=== PATIENT | female | born 1995 | race Two or more races ===

== ENCOUNTER 2024-10-14 09:08 | Observation (INO) | payer BC ==
[~2024-10-14] VITALS: Ht 165.1 cm; Wt 74.8 kg
[2024-10-14 10:08] LABS: Basophils # (auto) 0 10 ^3/uL (0-0.2); Basophils % (auto) 0.3 % (0.0-2.0); Eosinophils # (auto) 0 10 ^3/uL (0-0.8); Eosinophils % (auto) 0.4 % (0.0-7.0); Hematocrit 37.4 % (36.0-46.0); Hemoglobin 12.6 g/dL (12.2-16.2); Lymphocytes # (auto) 1.9 10 ^3/uL (0.4-5.4); Lymphocytes % (auto) 21.1 % (10.0-50.0); Mean Corpuscular Hemoglobin 29.1 pg (28.0-32.0); Mean Corpuscular Hgb Conc. 33.7 g/dL (32.0-36.0); Mean Corpuscular Volume 86.5 fL (80.0-100.0); Monocytes # (auto) 0.6 10 ^3/uL (0-1.3); Monocytes % (auto) 6.6 % (0.0-12.0); Neutrophils # (auto) 6.5 10 ^3/uL (1.6-8.6); Neutrophils % (auto) 71.6 % (37.0-80.0); Platelet Count (auto) 195 10^3/uL (140-450); Red Blood Cells 4.32 10^6/uL (4.0-5.20); Red Cell Distribution Width 13.3 % (11.8-14.3); White Blood Cell 9.1 10^3/uL (4.4-10.8)
[2024-10-14 10:16] LABS: Urine Bacteria FEW /hpf (None Seen); Urine Blood Negative /uL (Negative); Urine Clarity Turbid (Clear); Urine Color Yellow (Yellow); Urine Hyaline Cast FEW /lpf (0 - 2); Urine Mucus FEW (None Seen); Urine Protein, UAD 1+ (Negative); Urine Squamous Epithelial Cell FEW /hpf (<5); Urine Urobilinogen Normal (Negative); Urine WBC 4 /HPF (0-5); Urine pH 7.5 (5.0-9.0)
[2024-10-14 10:35] LABS: Alanine Aminotransferase 37 U/L (7-40); Albumin 3.8 g/dL (3.2-4.8); Alkaline Phosphatase 113 U/L (46-116); Anion Gap 5 (5-15); Aspartate Aminotransferase 25 U/L (13-40); Calcium 9.2 mg/dL (8.7-10.4); Carbon Dioxide 26 mmol/L (20-31); Chloride 104 mmol/L (98-107); Glucose 89 mg/dL (74-106); Potassium 4.3 mmol/L (3.5-5.1)
[2024-10-14 10:36] LABS: Bilirubin, Total 0.4 mg/dL (0.2-1.0); Blood Urea Nitrogen 7 mg/dL (9-23); Sodium 135 mmol/L (136-145); Total Protein 6.3 g/dL (5.7-8.2)
[2024-10-14] MEDS: LACTATED RINGER'S 1,000 ML IV SCH (10:52)
[2024-10-14] MEDS ORDERED: PREN-96 PO (11:03)
--- NOTE | 2024-10-14 15:21 | DVHDS2 ---
Physician Discharge Progress N Final Diagnosis: IUP 28 wk , dehydration history of syncope, anemia Operations or Procedures: Operations or Procedures IV hydration, EKG- NSR NST, appropriate for gestational age Condition on Discharge: Stable Disposition: Home Discharge Instructions: Diet: Regular Activity: No Restrictions, As Tolerated Follow Up/Referral: as indicated per Dr Alcantara Medications: N/A Follow Up Care: Discharge Statement: "Patient was advised to return to the ER or call 911 if any headaches, dizziness, shortness of breath, chest pain, abdominal pain, bleeding, fevers, or worsening of medical condition. Patient was counseled about treatment plan, medications, possible side effects, patientverbalized understanding. All questions were answered to the best of my ability. This discharge took greater then 30 minutes in planning, reviewing documentation, counseling the patient, and discussing with other team members." Visit Coding OBGYN Date of Service: Oct 14, 2024 Billing Provider: GAVINO STOREY DO COMPENSATION EXPERT Common Visit Codes: 33809-OFW/OBS SAME DATE (HIGH) COMPENSATION EXPERT Procedure Codes: 79288-57- NON-STRESS TEST GAVINO STOREY DO Oct 14, 2024 15:21
--- NOTE | 2024-10-15 11:42 | ECG ---
[facility] Test Date: 2024-10-14 Test Time: 09:41:10 Pat Name: CALLI HORNER Department: Room: TRIAGE1 A Gender: F Rn Transition: ZUHAIR : 1995 Requested By: GAVINO STOREY Order Number: [id number] Reading MD: Tyler Arteaga Measurements Intervals [place] Rate: 87 P: 13 MO: 128 QRS: -3 QRSD: 64 T: 15 QT: 344 QTc: 413 Interpretive Statements Normal sinus rhythm Cannot rule out Anterior infarct , age undetermined Electronically Signed On 10-15-2024 15:59:47 PST by Tyler Arteaga Please click the below link to view image of tracing.
== END 2024-10-14 12:17 | disposition home or self-care (01) ==
LOC: LDRP 09:08 → UNDOADMOB 09:08 → LDRP 09:32 → UNDODISOB 12:17
PROVIDERS: ADMIT Obstetrics & Gynecology; ATTEND Obstetrics & Gynecology
DX: O99.283 Endocrine, nutritional and metabolic diseases complicating pregnancy, third trimester (principal); E86.0 Dehydration; O99.013 Anemia complicating pregnancy, third trimester; D64.9 Anemia, unspecified; R55 Syncope and collapse; Z3A.28 28 weeks gestation of pregnancy; Z79.899 Other long term (current) drug therapy; Z98.890 Other specified postprocedural states
CPT/HCPCS: 36415; 59025; 80053; 81001; 81002; 85025; 93005; 94760; 96360; 96361; G0378

== ENCOUNTER 2024-11-30 22:24 | Emergency (ER) | payer BC ==
[~2024-11-30] VITALS: Ht 165.1 cm; Wt 80.0 kg
[~2024-11-30 22:24] MED LIST: PREN-96 PO
--- NOTE | 2024-11-30 23:02 | ED.PDOC ---
Musculoskeletal HPI Comments HPI: Poor Historian. 29-year-old female thirty-five weeks gestation presents to emergency department per her PCP's instruction. Patient has been having two day history of right ankle pitting edema. Denies any associated symptoms of chest pain shortness of breath or dizziness or calf pain. Past Medical History: Denies any Past Surgical History: Denies any REVIEW OF SYSTEMS: CONSTITUTIONAL: Denies acute: fever, diaphoresis, chills, generalized weakness. HEAD: Denies acute: headache, photophobia Eyes: Denies acute: Double vision, vision loss, eye pain, eye discharge. EARS: Denies acute: tinnitus, hearing loss, ear discharge, ear pain, THROAT: Denies acute: sore throat, swelling, difficulty swallowing , pain with swallowing, change in voice. NECK: Denies acute: neck pain, neck swelling, stiff neck. HEART: Denies acute : chest pain, palpitations, LUNGS: Denies acute: SOB, wheezing, cough, hemoptysis ABDOMEN: Denies acute: abdominal pain, Nausea, Vomiting, diarrhea, melena , hematemesis, hematochezia SKIN: Denies acute: rash, redness, lesions, itchiness. EXTREMITIES: Denies acute: calf pain, numbness, tingling, weakness, denies pain in extremity. Denies acute: Low back pain. Neuro: Denies acute: focal neurological deficit, motor or sensory focal neurological deficit, tremors, seizure like activity, confusion, dizziness, change in mental status, loss of bowel or bladder function, cauda equina like symptoms. : Denies acute: dysuria, hematuria, flank pain, increase in urinary frequency. PSYCH: Denies acute: hallucination, suicidal ideation, homicidal ideation. FEMALE: Denies acute: abnormal vaginal bleeding, foul odor, unusual discharge. PHYSICAL EXAM: General: ---no-----acute distress, awake and alert. Head: normocephalic, atraumatic. Neck: supple, trachea is midline, no swelling. Throat: Normal phonation. Eyes:, no erythema, no purulent discharge, no proptosis, no icterus. Heart: regular rate, regular rhythm, no significant murmur appreciated. Lungs: no apparent respiratory distress, Able to speak in full sentences. No wheezing, no rhonchi, no crackles. No stridors Clear to auscultation bilaterally. Abdomen: non tender to palpation, non distended, soft, no guarding, no rebound, + bowel sounds. Neuro: Awake, Alert, oriented to name, self, situation, follows commands GCS=15. Speech is normal. Skin: no petechia, no purpura, no cyanosis, non-pale, not jaundice. Lower extremities: --no - Pitting edema Evaluation of the area of complaint. Right ankle pitting edema 2/4. Pedal pulses palpable. Patient is neurovascularly intact in the affected extremity. No tenderness to palpation. No calf tenderness to palpation. Makes eye contact. moves all four extremities. Face: no apparent facial droop. Ambulating in the ED independently. Ears: Normal appearing TM b/l, ED COURSE: Chief Complaint: Lower Extremity Time Seen by MD: 22:28 Reviewed Notes: Nurses Notes, Allergies Allergies: Coded Allergies: NO KNOWN ALLERGIES (Unverified , 10/14/24) Home Meds Active Scripts Cephalexin Monohydrate (Cephalexin) 500 Mg Tab, 1 TAB PO TID for 5 Days, #15 TAB Prov:TABITHA CANELA DO 12/01/24 Reported Medications Vit W/ Ferrous Fumara ( One Daily) Daily Tab, 1 TAB PO DAILY, #90 TAB 3 Refills 10/14/24 Information Source: Patient Location: Right Was a procedure done? Was a procedure done?: No Differential Diagnosis EXT Differential Diagnosis: Deep Vein Thrombosis, Contusion, Neurovascular injury, Bursitis, Other (Leg swellingDdx include but not limited to DVT, ischemic limb, pitting edema, volume overload, CHF, cellulitis, hematoma, compartment syndrome, dependent edema, venous stasis.) X-Ray, Labs, Meds, VS Vital Signs Date Time Temp Pulse Resp B/P (MAP) Pulse Ox O2 Delivery O2 Flow Rate FiO2 12/01/24 02:00 66 16 96 Room Air* 0 21 12/01/24 01:59 98.4 72 18 119/62 (81) 97 98.4 11/30/24 22:55 98.2 84 18 134/59 (84) 97 98.2 Lab Test 12/01/24 02:05 11/30/24 22:59 Range/Units Urine Color Light-yellow Yellow Urine Clarity Turbid H Clear Urine pH 6.0 5.0-9.0 Urine Specific [place] 1.017 1.001-1.035 Urine Protein Negative Negative Urine Ketones Negative Negative Urine Blood Negative Negative /uL Urine Nitrite Negative Negative Urine Bilirubin Negative Negative Urine Urobilinogen Normal Negative mg/dL Urine Leukocyte Esterase 3+ Negative /uL Urine RBC 9 0 - 4 /hpf Urine Microscopic WBC 27 H 0-5 /HPF Urine Squamous Epithelial Cells Mod <5 /hpf Urine Bacteria Few H None Seen /hpf Urine Glucose Normal Normal mg/dL White Blood Count 8.6 4.4-10.8 10^3/uL Red Blood Count 4.21 4.0-5.20 10^6/uL Hemoglobin 11.7 L 12.2-16.2 g/dL Hematocrit 35.3 L 36.0-46.0 % Mean Corpuscular Volume 84.0 80.0-100.0 fL Mean Corpuscular Hemoglobin 27.9 L 28.0-32.0 pg Mean Corpuscular Hemoglobin Concent 33.2 32.0-36.0 g/dL Red Cell Distribution Width 12.6 11.8-14.3 % Platelet Count 199 140-450 10^3/uL Mean Platelet Volume 10.4 6.9-10.8 fL Neutrophils (%) (Auto) 59.6 37.0-80.0 % Lymphocytes (%) (Auto) 30.4 10.0-50.0 % Monocytes (%) (Auto) 8.6 0.0-12.0 % Eosinophils (%) (Auto) 0.7 0.0-7.0 % Basophils (%) (Auto) 0.7 0.0-2.0 % Neutrophils # (Auto) 5.1 1.6-8.6 10 ^3/uL Lymphocytes # (Auto) 2.6 0.4-5.4 10 ^3/uL Monocytes # (Auto) 0.7 0-1.3 10 ^3/uL Eosinophils # (Auto) 0.1 0-0.8 10 ^3/uL Basophils # (Auto) 0.1 0-0.2 10 ^3/uL Nucleated Red Blood Cells 0.1 % Sodium Level 137 136-145 mmol/L Potassium Level 3.8 3.5-5.1 mmol/L Chloride Level 106 98-107 mmol/L Carbon Dioxide Level 22 20-31 mmol/L Anion Gap 9 5-15 Blood Urea Nitrogen 9 9-23 mg/dL Creatinine 0.64 0.550-1.02 mg/dL Glomerular Filtration Rate Calc 124 >90 mL/min BUN/Creatinine Ratio 14.1 10.0-20.0 Serum Glucose 89 74-106 mg/dL Calcium Level 9.5 8.7-10.4 mg/dL Total Bilirubin 0.4 0.2-1.0 mg/dL Aspartate Amino Transferase (AST) 25 13-40 U/L Alanine Aminotransferase (ALT) 23 7-40 U/L Alkaline Phosphatase 182 H 46-116 U/L B-Type Natriuretic Peptide 50.35 0-100 pg/mL Total Protein 6.6 5.7-8.2 g/dL Albumin 3.8 3.2-4.8 g/dL Time of 1ST Reevaluation: 00:00 Reevaluation 1ST: Unchanged Patient Education/Counseling: Diagnosis, Treatment Family Education/Counseling: Other Comments Patient presented with the above HPI.----ankle swelling--workup was initiated. patient was found with the above mentioned diagnosis. the following medications were ordered: please refer to order lists of meds and tests obtained by myself Dr. Canela. Patient ED course and VS have been stabilized. Patient has been reassessed in the ED and remained in a stable condition. Pertinent incidental findings were discussed with the patient and/or family. Patient/family voices understanding and is agreeable with plan. Patient has been observed in the ED adequate length of time to insure improvement/stability. Escalation of care considered: Consideration of escalation to observation or admission Patient was DISCHARGED home in a stable condition. All the reports of any imaging studies that were ordered by myself were reviewed by myself. Departure 1 Departure Time of Disposition: 00:09 Impression: Primary Impression: Pitting edema Additional Impression: UTI in Disposition: 01 HOME / SELF CARE / HOMELESS Condition: Stable Additional Instructions: Additional instructions: You MUST follow-up with your primary care/family doctor in 1 to 2 days. If you are unable to see your primary care/family doctor, please return to our emergency room for re-assessment and re-evaluation in 1 to 2 days. Return to the emergency room here in our facility or to the nearest ER [facility] if your symptoms change or worsen. CONSULTATIONS: you MUST Follow-up for consultation as soon as possible with: Dr. MILDRED Mckenzie doctor in 1-2 days. Please call for appointment. You MUST call the consultants office yourself to make an appointment. You may need to arrange that through your insurance and/or your primary/family doctor. If you are unable to see the programmer analyst consultant in 1 to 2 days, you must return to our emergency room (or any other ER of your choice) for re-assessment and re- evaluation. Adequate fluid hydration. Leg elevation. Wear compression stockings. Salt restrictions. Repeat leg ultrasound in 4-5 days or sooner if symptoms change or worsen. Below is a copy of your radiological report for follow up: [place] [address] Ph: [phone] DIAGNOSTIC IMAGING Diagnostic Imaging Report : [id number] Signed PATIENT: CALLI HORNER ACCT: [id number] UNIT: [id number] : 1995 LOC: ER ROOM / BED: / AGE / SEX: 29 / F ADM STATUS: REG ER SERVICE 8102 ORDERING PHYSICIAN: TABITHA CANELA DO PROCEDURE(s): RLDVT - RT Lower DVT REASON: ankle swelling ORDER NUMBER(s): [id number], ACCESSION NUMBER(s): [id number] Right lower extremity venous duplex Clinical History: ankle swelling Comparison: None Technique: Duplex Doppler evaluation of the deep venous system of the right lower extremity from the common femoral vein to the popliteal vein including color Doppler and spectral/pulsed waveform analysis was performed. Findings: The common femoral vein demonstrates appropriate compressibility and waveform variability. There is compressibility/patency of the great saphenous vein at the proximal thigh. The femoral vein demonstrates appropriate compressibility and waveform variability. The deep femoral vein demonstrates appropriate compressibility and waveform variability. The popliteal vein demonstrates appropriate compressibility and waveform variability. There is normal compressibility at the tibioperoneal trunk. Impression: 1. No right femoropopliteal venous thrombosis. ATED BY: JUS ALEGRE MD DICTATED DATE/TIME: 11/30/24 0656 SIGNED BY: JUS ALEGRE MD SIGNED DATE/TIME: 11/30/24 9596 CC: e-Prescriptions Cephalexin Monohydrate (Cephalexin) 500 Mg Tab 1 TAB PO TID for 5 Days, #15 TAB Prov: TABITHA CANELA DO 12/01/24 Discharged With: Self Critical Care Note Critical Care Time?: No TABITHA CANELA DO Nov 30, 2024 23:02
[2024-11-30 23:13] LABS: Basophils # (auto) 0.1 10 ^3/uL (0-0.2); Basophils % (auto) 0.7 % (0.0-2.0); Eosinophils # (auto) 0.1 10 ^3/uL (0-0.8); Eosinophils % (auto) 0.7 % (0.0-7.0); Hematocrit 35.3 % (36.0-46.0); Hemoglobin 11.7 g/dL (12.2-16.2); Lymphocytes # (auto) 2.6 10 ^3/uL (0.4-5.4); Lymphocytes % (auto) 30.4 % (10.0-50.0); Mean Corpuscular Hemoglobin 27.9 pg (28.0-32.0); Mean Corpuscular Hgb Conc. 33.2 g/dL (32.0-36.0); Monocytes # (auto) 0.7 10 ^3/uL (0-1.3); Monocytes % (auto) 8.6 % (0.0-12.0); Neutrophils # (auto) 5.1 10 ^3/uL (1.6-8.6); Neutrophils % (auto) 59.6 % (37.0-80.0); Nucleated Red Blood Cells % 0.1 %; Platelet Count (auto) 199 10^3/uL (140-450); Red Blood Cells 4.21 10^6/uL (4.0-5.20); Red Cell Distribution Width 12.6 % (11.8-14.3); White Blood Cell 8.6 10^3/uL (4.4-10.8)
[2024-11-30 23:32] LABS: Alanine Aminotransferase 23 U/L (7-40); Albumin 3.8 g/dL (3.2-4.8); Anion Gap 9 (5-15); Aspartate Aminotransferase 25 U/L (13-40); BUN/Creatinine Ratio 14.1 (10.0-20.0); Bilirubin, Total 0.4 mg/dL (0.2-1.0); Blood Urea Nitrogen 9 mg/dL (9-23); Calcium 9.5 mg/dL (8.7-10.4); Carbon Dioxide 22 mmol/L (20-31); Chloride 106 mmol/L (98-107); Glucose 89 mg/dL (74-106); Potassium 3.8 mmol/L (3.5-5.1); Sodium 137 mmol/L (136-145); Total Protein 6.6 g/dL (5.7-8.2)
[2024-11-30 23:43] LABS: Alkaline Phosphatase 182 U/L (46-116)
--- NOTE | 2024-11-30 23:48 | DVH ---
Right lower extremity venous duplex Clinical History: ankle swelling Comparison: None Technique: Duplex Doppler evaluation of the deep venous system of the right lower extremity from the common femo ral vein to the popliteal vein including color Doppler and spectral/pulsed waveform analysis was perf ormed. Findings: The common femoral vein demonstrates appropriate compressibility and waveform variability. There is compressibility/patency of the great saphenous vein at the proximal thigh. The femoral vein demonstrates appropriate compressibility and waveform variability. The deep femoral vein demonstrates appropriate compressibility and waveform variability. The popliteal vein demonstrates appropriate compressibility and waveform variability. There is normal compressibility at the tibioperoneal trunk. Impression: 1. No right femoropopliteal venous thrombosis.
[2024-12-01 01:59] VITALS: BP 119/62; TEMP 98.4
[2024-12-01 02:00] VITALS: PULSE 66; RESP 16; O2SAT 96
[2024-12-01] MEDS ORDERED: CEPH500T PO (02:39)
[2024-12-01 02:44] LABS: Urine Bacteria FEW /hpf (None Seen); Urine Blood Negative /uL (Negative); Urine Clarity Turbid (Clear); Urine Color Light-Yellow (Yellow); Urine Protein, UAD Negative (Negative); Urine Specific Gravity 1.017 (1.001-1.035); Urine Squamous Epithelial Cell MOD /hpf (<5); Urine Urobilinogen Normal (Negative); Urine WBC 27 /HPF (0-5)
== END 2024-12-01 02:10 | disposition home or self-care (01) ==
LOC: ER 22:24
DX: O23.43 Unspecified infection of urinary tract in pregnancy, third trimester (principal); N39.0 Urinary tract infection, site not specified; O26.893 Other specified pregnancy related conditions, third trimester; R60.9 Edema, unspecified; Z3A.35 35 weeks gestation of pregnancy; Z79.899 Other long term (current) drug therapy
CPT/HCPCS: 36415; 80053; 81001; 83880; 85025; 93971

== ENCOUNTER 2024-12-06 08:55 | Observation (INO) | payer BC ==
[~2024-12-06 08:55] MED LIST changes: +CEPH500T PO
--- NOTE | 2024-12-06 09:55 | DVH ---
Procedure: US BIOPHYSICAL PROFILE 12/06/2024 09:31 AM Indication: PIH Comparison: None Technique: Sonogram of gravid uterus utilizing grayscale and color techniques. FINDINGS: Single living intrauterine gestation. Presentation: Cephalic Placenta: Anterior heart rate: 140 bpm BOBO: 14 cm, DVP: 6.4 cm Maternal cervix: Not visualized Biophysical Profile: breathing score: 2 movement score: 2 tone: 2 Quantitative BOBO score: 2 Total score: 8/8 IMPRESSION: 1. Single living as above. 2. Biophysical profile score: 8/8.
[2024-12-06 10:11] LABS: Basophils # (auto) 0 10 ^3/uL (0-0.2); Basophils % (auto) 0.6 % (0.0-2.0); Eosinophils # (auto) 0.1 10 ^3/uL (0-0.8); Eosinophils % (auto) 0.8 % (0.0-7.0); Hematocrit 32.7 % (36.0-46.0); Hemoglobin 11.1 g/dL (12.2-16.2); Lymphocytes # (auto) 2.2 10 ^3/uL (0.4-5.4); Lymphocytes % (auto) 30.3 % (10.0-50.0); Mean Corpuscular Hemoglobin 28.2 pg (28.0-32.0); Mean Corpuscular Volume 82.9 fL (80.0-100.0); Monocytes # (auto) 0.6 10 ^3/uL (0-1.3); Monocytes % (auto) 8.8 % (0.0-12.0); Neutrophils # (auto) 4.3 10 ^3/uL (1.6-8.6); Neutrophils % (auto) 59.5 % (37.0-80.0); Nucleated Red Blood Cells % 0.1 %; Platelet Count (auto) 194 10^3/uL (140-450); Red Blood Cells 3.94 10^6/uL (4.0-5.20); White Blood Cell 7.3 10^3/uL (4.4-10.8)
[2024-12-06 10:12] LABS: Urine Bacteria FEW /hpf (None Seen); Urine Blood Negative /uL (Negative); Urine Clarity Turbid (Clear); Urine Color Light-Yellow (Yellow); Urine Protein, UAD Negative (Negative); Urine Specific Gravity 1.014 (1.001-1.035); Urine Squamous Epithelial Cell MOD /hpf (<5); Urine Urobilinogen Normal (Negative); Urine WBC 5 /HPF (0-5); Urine pH 5.5 (5.0-9.0)
[2024-12-06 10:22] LABS: INR 0.91 (0.9-1.15); Partial Thromboplastin Time 24.6 SEC (24.5-34.5); Prothrombin Time 9.7 sec (9.3-11.8)
[2024-12-06 10:23] LABS: Protein, Urine 14.7 mg/dL (1-14)
[2024-12-06 10:25] LABS: Creatinine, Urine 70.63 mg/dL (30.0-125.0); Urine Protein/Creatinine Ratio 0.21
[2024-12-06 10:25] LABS: Alanine Aminotransferase 30 U/L (7-40); Albumin 3.4 g/dL (3.2-4.8); Anion Gap 9 (5-15); Aspartate Aminotransferase 30 U/L (13-40); BUN/Creatinine Ratio 16.9 (10.0-20.0); Bilirubin, Total 0.3 mg/dL (0.2-1.0); Blood Urea Nitrogen 10 mg/dL (9-23); Calcium 9.2 mg/dL (8.7-10.4); Carbon Dioxide 22 mmol/L (20-31); Glucose 78 mg/dL (74-106); Potassium 3.9 mmol/L (3.5-5.1); Sodium 139 mmol/L (136-145)
[2024-12-06 10:26] LABS: Alkaline Phosphatase 183 U/L (46-116); Chloride 108 mmol/L (98-107); Total Protein 5.7 g/dL (5.7-8.2)
--- NOTE | 2024-12-06 13:02 | DVHDS2 ---
Physician Discharge Progress N Final Diagnosis: PreE labs Operations or Procedures: Operations or Procedures 29yo IUP@36.1wks, +FM, denies UCs/LOF/VB/VIEYRA/vision changes/RUQ pain. VSS NST reactive FKC/PTL precautions reviewed Dr. Alcantara consulted, agrees with POC. Laboratory Tests Test 12/06/24 09:20 12/06/24 09:43 Range/Units Urine Color Light-yellow Yellow Urine Clarity Turbid H Clear Urine pH 5.5 5.0-9.0 Urine Specific [place] 1.014 1.001-1.035 Urine Protein Negative Negative Urine Ketones Negative Negative Urine Blood Negative Negative /uL Urine Nitrite Negative Negative Urine Bilirubin Negative Negative Urine Urobilinogen Normal Negative mg/dL Urine Leukocyte Esterase 3+ Negative /uL Urine RBC 5 0 - 4 /hpf Urine Microscopic WBC 5 0-5 /HPF Urine Squamous Epithelial Cells Mod <5 /hpf Urine Bacteria Few H None Seen /hpf Urine Creatinine 70.63 30.0-125.0 mg/dL Urine Protein/Creatinine Ratio 0.21 Urine Glucose Normal Normal mg/dL Urine Total Protein 14.7 H 1-14 mg/dL White Blood Count 7.3 4.4-10.8 10^3/uL Red Blood Count 3.94 L 4.0-5.20 10^6/uL Hemoglobin 11.1 L 12.2-16.2 g/dL Hematocrit 32.7 L 36.0-46.0 % Mean Corpuscular Volume 82.9 80.0-100.0 fL Mean Corpuscular Hemoglobin 28.2 28.0-32.0 pg Mean Corpuscular Hemoglobin Concent 34.0 32.0-36.0 g/dL Red Cell Distribution Width 13.0 11.8-14.3 % Platelet Count 194 140-450 10^3/uL Mean Platelet Volume 10.7 6.9-10.8 fL Neutrophils (%) (Auto) 59.5 37.0-80.0 % Lymphocytes (%) (Auto) 30.3 10.0-50.0 % Monocytes (%) (Auto) 8.8 0.0-12.0 % Eosinophils (%) (Auto) 0.8 0.0-7.0 % Basophils (%) (Auto) 0.6 0.0-2.0 % Neutrophils # (Auto) 4.3 1.6-8.6 10 ^3/uL Lymphocytes # (Auto) 2.2 0.4-5.4 10 ^3/uL Monocytes # (Auto) 0.6 0-1.3 10 ^3/uL Eosinophils # (Auto) 0.1 0-0.8 10 ^3/uL Basophils # (Auto) 0 0-0.2 10 ^3/uL Nucleated Red Blood Cells 0.1 % Prothrombin Time 9.7 9.3-11.8 sec Prothrombin Time INR 0.91 0.9-1.15 Activated Partial Thromboplast Time 24.6 24.5-34.5 SEC Sodium Level 139 136-145 mmol/L Potassium Level 3.9 3.5-5.1 mmol/L Chloride Level 108 H 98-107 mmol/L Carbon Dioxide Level 22 20-31 mmol/L Anion Gap 9 5-15 Blood Urea Nitrogen 10 9-23 mg/dL Creatinine 0.59 0.550-1.02 mg/dL Glomerular Filtration Rate Calc 127 >90 mL/min BUN/Creatinine Ratio 16.9 10.0-20.0 Serum Glucose 78 74-106 mg/dL Uric Acid 3.0 L 3.1-7.8 mg/dL Calcium Level 9.2 8.7-10.4 mg/dL Total Bilirubin 0.3 0.2-1.0 mg/dL Aspartate Amino Transferase (AST) 30 13-40 U/L Alanine Aminotransferase (ALT) 30 7-40 U/L Alkaline Phosphatase 183 H 46-116 U/L Total Protein 5.7 5.7-8.2 g/dL Albumin 3.4 3.2-4.8 g/dL Other Interventions Other Interventions [place] [address] Ph: [phone] DIAGNOSTIC IMAGING Diagnostic Imaging Report : [id number] Signed PATIENT: CALLI HORNER ACCT: [id number] UNIT: [id number] : 1995 LOC: [facility] ROOM / BED: [facility] / A AGE / SEX: 29 / F ADM STATUS: ADM IN SERVICE 0916 ORDERING PHYSICIAN: TA GARCIA CNM PROCEDURE(s): BPP - BIOPHYSICAL PROFILE REASON: [facility] ORDER NUMBER(s): [id number], ACCESSION NUMBER(s): [id number] Procedure: US BIOPHYSICAL PROFILE 12/06/2024 09:31 AM Indication: PIH Comparison: None Technique: Sonogram of gravid uterus utilizing grayscale and color techniques. FINDINGS: Single living intrauterine gestation. Presentation: Cephalic Placenta: Anterior heart rate: 140 bpm BOBO: 14 cm, DVP: 6.4 cm Maternal cervix: Not visualized Biophysical Profile: breathing score: 2 movement score: 2 tone: 2 Quantitative BOBO score: 2 Total score: 8/8 IMPRESSION: 1. Single living as above. 2. Biophysical profile score: 8/8. ATED BY: ESTELA DREW MD DICTATED DATE/TIME: 12/06/24951 SIGNED BY: ESTELA DREW MD SIGNED DATE/TIME: 12/06/24951 CC: Condition on Discharge: Stable Disposition: Home Discharge Instructions: Diet: Regular Activity: No Restrictions, As Tolerated Medications: see med list Follow Up Care: Specialist: f/u in [address] Alcantara Discharge Statement: "Patient was advised to return to the ER or call 911 if any headaches, dizziness, shortness of breath, chest pain, abdominal pain, bleeding, fevers, or worsening of medical condition. Patient was counseled about treatment plan, medications, possible side effects, patientverbalized understanding. All questions were answered to the best of my ability. This discharge took greater then 30 minutes in planning, reviewing documentation, counseling the patient, and discussing with other team members." Visit Coding OBGYN Date of Service: Dec 06, 2024 Billing Provider: TA GARCIA CNM GROUND DEFENCE OFFICER Common Visit Codes: 86337-APADMDS OBS CARE (HIGH) GROUND DEFENCE OFFICER Procedure Codes: 22107-70- NON-STRESS TEST TA GARCIA CNM Dec 06, 2024 13:02
== END 2024-12-06 11:11 | disposition home or self-care (01) ==
LOC: LDRP 08:55 → UNDOADMOB 08:55 → LDRP 09:19 → UNDODISOB 11:11
PROVIDERS: ADMIT Obstetrics & Gynecology; ATTEND Obstetrics & Gynecology
DX: O13.3 Gestational [pregnancy-induced] hypertension without significant proteinuria, third trimester (principal); Z98.890 Other specified postprocedural states; Z79.899 Other long term (current) drug therapy; Z3A.36 36 weeks gestation of pregnancy
CPT/HCPCS: 36415; 76818; 80053; 81001; 82570; 84156; 84550; 85025; 85610; 85730; 94760; G0378; 76819

== ENCOUNTER 2024-12-09 20:32 | Observation (INO) | payer BC ==
[~2024-12-09] VITALS: Ht 165.1 cm; Wt 79.8 kg
--- NOTE | 2024-12-09 21:56 | DVHDS2 ---
Physician Discharge Progress N Final Diagnosis: Gestational HTN Secondary Diagnosis: surveillance Operations or Procedures: Operations or Procedures NST Commentary: Commentary Hand swelling/ edema Condition on Discharge: Stable Disposition: Home Discharge Instructions: Diet: Regular, Cardiac 2g Na,low cholest Activity: No Restrictions, As Tolerated Follow Up/Referral: as scheduled Medications: NA Follow Up Care: Discharge Statement: "Patient was advised to return to the ER or call 911 if any headaches, dizziness, shortness of breath, chest pain, abdominal pain, bleeding, fevers, or worsening of medical condition. Patient was counseled about treatment plan, medications, possible side effects, patientverbalized understanding. All questions were answered to the best of my ability. This discharge took greater then 30 minutes in planning, reviewing documentation, counseling the patient, and discussing with other team members." Visit Coding OBGYN Date of Service: Dec 09, 2024 Billing Provider: GAVINO STOREY DO CONSTRUCTION FRAMER Common Visit Codes: 94272-TZG/OBS SAME DATE (MOD) GAVINO STOREY DO Dec 09, 2024 21:56
== END 2024-12-09 22:11 | disposition home or self-care (01) ==
LOC: LDRP 20:32
PROVIDERS: ADMIT Pediatrics; ATTEND Pediatrics
DX: O13.3 Gestational [pregnancy-induced] hypertension without significant proteinuria, third trimester (principal); O26.893 Other specified pregnancy related conditions, third trimester; R20.2 Paresthesia of skin; Z3A.36 36 weeks gestation of pregnancy; Z79.899 Other long term (current) drug therapy; Z98.890 Other specified postprocedural states
CPT/HCPCS: 81002; 94760; G0378

== ENCOUNTER 2024-12-14 06:22 | Observation (INO) | payer BC ==
--- NOTE | 2024-12-14 10:42 | DVH ---
BIOPHYSICAL PROFILE HISTORY: PIH TECHNIQUE: Multiple transabdominal real-time grayscale sonographic images through the gravid uterus of the fetus with duplex Doppler color flow and M-mode spectral analysis FINDINGS: BIOPHYSICAL PROFILE: breathing score: 2 movement score: 2 tone score: 2 Quantitative BOBO score: 2 (BOBO: 12.9 Cm.) Total score: 8 The cervix not well visualized Single live fetus in cephalic presentation. heart rate 122 beats per minute. Grade 2 anterior placenta without previa or abruption IMPRESSION: Biophysical profile score: 8
--- NOTE | 2024-12-14 15:39 | DVHDS2 ---
Physician Discharge Progress N Final Diagnosis: [facility] 37wks Operations or Procedures: Operations or Procedures nst,roman nst reviewed reactive Condition on Discharge: Good Disposition: Home Discharge Instructions: Diet: Regular Activity: Light activity Medications: na Follow Up Care: Specialist: 1w Discharge Statement: "Patient was advised to return to the ER or call 911 if any headaches, dizziness, shortness of breath, chest pain, abdominal pain, bleeding, fevers, or worsening of medical condition. Patient was counseled about treatment plan, medications, possible side effects, patientverbalized understanding. All questions were answered to the best of my ability. This discharge took greater then 30 minutes in planning, reviewing documentation, counseling the patient, and discussing with other team members." Visit Coding OBGYN Date of Service: Dec 14, 2024 Billing Provider: DIVYA BOWEN DO CUSTOMER SUPPLY COORDINATOR Common Visit Codes: 27379-RFVDSBI OBS CARE (HIGH) CUSTOMER SUPPLY COORDINATOR Procedure Codes: 80424-24- NON-STRESS TEST DIVYA BOWEN DO Dec 14, 2024 15:39
== END 2024-12-14 11:11 | disposition home or self-care (01) ==
LOC: LDRP 09:35 → UNDOADMOB 09:35 → LDRP 09:44 → UNDODISOB 11:11
PROVIDERS: ADMIT Obstetrics & Gynecology; ATTEND Obstetrics & Gynecology
DX: O13.3 Gestational [pregnancy-induced] hypertension without significant proteinuria, third trimester (principal); Z98.890 Other specified postprocedural states; Z79.899 Other long term (current) drug therapy; Z3A.37 37 weeks gestation of pregnancy
CPT/HCPCS: 76819; 81002; 94760; G0378; 76818

== ENCOUNTER 2024-12-21 06:23 | Observation (INO) | payer BC ==
--- NOTE | 2024-12-21 11:28 | DVH ---
BIOPHYSICAL PROFILE HISTORY: PIH Comparison Study: US BIOPHYSICAL PROFILE on DOS: 12/14/24, US BIOPHYSICAL PROFILE on DOS: 12/06/24 TECHNIQUE: Multiple real-time grayscale sonographic images through the gravid uterus of the fetus wi th duplex Doppler color flow and M-mode spectral analysis FINDINGS: BIOPHYSICAL PROFILE: breathing score: 2 movement score: 2 tone score: 2 Quantitative BOBO score: 2 (BOBO: 11.7 Cm.) Total score: 8 The cervix is not visualized Single live fetus in cephalic presentation. heart rate 124 beats per minute. Grade 3, anterior placenta without previa or abruption IMPRESSION: Biophysical profile score: 8
--- NOTE | 2024-12-21 14:56 | DVHDS2 ---
Physician Discharge Progress N Final Diagnosis: PIH 38wks Operations or Procedures: Operations or Procedures nst reviewd reactive Condition on Discharge: Good Disposition: Home Discharge Instructions: Diet: Cardiac 2g Na,low cholest Activity: No Restrictions, As Tolerated Follow Up/Referral: weekly Medications: na Follow Up Care: Specialist: 1w Discharge Statement: "Patient was advised to return to the ER or call 911 if any headaches, dizziness, shortness of breath, chest pain, abdominal pain, bleeding, fevers, or worsening of medical condition. Patient was counseled about treatment plan, medications, possible side effects, patientverbalized understanding. All questions were answered to the best of my ability. This discharge took greater then 30 minutes in planning, reviewing documentation, counseling the patient, and discussing with other team members." Visit Coding OBGYN Date of Service: December 21, 2024 Billing Provider: DIVYA BOWEN DO PENCIL INSPECTOR Common Visit Codes: 67282-BQYFLMD OBS CARE (HIGH) PENCIL INSPECTOR Procedure Codes: 44973-24- NON-STRESS TEST DIVYA BOWEN DO December 21, 2024 14:56
== END 2024-12-21 12:42 | disposition home or self-care (01) ==
LOC: UNDOADMOB 10:00 → LDRP 10:00 → UNDODISOB 12:42
PROVIDERS: ADMIT Obstetrics & Gynecology; ATTEND Obstetrics & Gynecology
DX: O13.3 Gestational [pregnancy-induced] hypertension without significant proteinuria, third trimester (principal); Z3A.38 38 weeks gestation of pregnancy
CPT/HCPCS: 76818; 81002; 94760; G0378; 59025; 76819

== ENCOUNTER 2024-12-27 07:57 | Observation (INO) | payer BC ==
--- NOTE | 2024-12-27 09:29 | DVH ---
BIOPHYSICAL PROFILE HISTORY: PIH TECHNIQUE: Multiple transabdominal real-time grayscale sonographic images through the gravid uterus of the fetus with duplex Doppler color flow and M-mode spectral analysis FINDINGS: BIOPHYSICAL PROFILE: breathing score: 2 movement score: 2 tone score: 2 Quantitative BOBO score: 2 (BOBO: 9.9 Cm.) Total score: 8 The cervix not well visualized Single live fetus in cephalic. presentation. heart rate 147 beats per minute. Grade 3 anterior placenta without previa or abruption IMPRESSION: Biophysical profile score: 8
[2024-12-27 09:56] LABS: Vaginal Trichomonas Not Present
[2024-12-27 09:57] LABS: Vaginal Bacteria Many; Vaginal Clue Cells Few; Vaginal Epithelial Cells Many
[2024-12-27 10:18] LABS: Urine Bacteria FEW /hpf (None Seen); Urine Blood Negative /uL (Negative); Urine Clarity Turbid (Clear); Urine Color Light-Yellow (Yellow); Urine Mucus FEW (None Seen); Urine Protein, UAD 1+ (Negative); Urine Specific Gravity 1.017 (1.001-1.035); Urine Squamous Epithelial Cell FEW /hpf (<5); Urine Urobilinogen Normal (Negative); Urine WBC 38 /HPF (0-5)
[2024-12-27 10:19] LABS: Basophils # (auto) 0 10 ^3/uL (0-0.2); Basophils % (auto) 0.5 % (0.0-2.0); Eosinophils # (auto) 0 10 ^3/uL (0-0.8); Eosinophils % (auto) 0.2 % (0.0-7.0); Hematocrit 32.5 % (36.0-46.0); Hemoglobin 10.8 g/dL (12.2-16.2); Lymphocytes # (auto) 2.3 10 ^3/uL (0.4-5.4); Lymphocytes % (auto) 28.2 % (10.0-50.0); Mean Corpuscular Hgb Conc. 33.2 g/dL (32.0-36.0); Mean Corpuscular Volume 81.4 fL (80.0-100.0); Monocytes # (auto) 0.6 10 ^3/uL (0-1.3); Monocytes % (auto) 6.7 % (0.0-12.0); Neutrophils # (auto) 5.3 10 ^3/uL (1.6-8.6); Neutrophils % (auto) 64.4 % (37.0-80.0); Nucleated Red Blood Cells % 0.1 %; Platelet Count (auto) 164 10^3/uL (140-450); Red Blood Cells 3.99 10^6/uL (4.0-5.20); Red Cell Distribution Width 13.4 % (11.8-14.3); White Blood Cell 8.3 10^3/uL (4.4-10.8)
[2024-12-27 10:24] LABS: Chloride 107 mmol/L (98-107); INR 0.92 (0.9-1.15); Partial Thromboplastin Time 25.7 SEC (24.5-34.5); Potassium 3.8 mmol/L (3.5-5.1); Prothrombin Time 9.8 sec (9.3-11.8)
[2024-12-27 10:28] LABS: Carbon Dioxide 23 mmol/L (20-31)
[2024-12-27 10:29] LABS: Creatinine, Urine 139.32 mg/dL (30.0-125.0); Urine Protein/Creatinine Ratio 0.39
[2024-12-27 10:32] LABS: Uric Acid 5.6 mg/dL (3.1-7.8)
[2024-12-27 10:33] LABS: BUN/Creatinine Ratio 13.6 (10.0-20.0); Blood Urea Nitrogen 11 mg/dL (9-23); Glucose 88 mg/dL (74-106)
[2024-12-27 10:34] LABS: Alkaline Phosphatase 170 U/L (46-116); Calcium 8.4 mg/dL (8.7-10.4); Total Protein 5.7 g/dL (5.7-8.2)
[2024-12-27 10:35] LABS: Alanine Aminotransferase 18 U/L (7-40); Albumin 3.4 g/dL (3.2-4.8); Aspartate Aminotransferase 20 U/L (13-40)
[2024-12-27 10:36] LABS: Bilirubin, Total 0.4 mg/dL (0.2-1.0)
--- NOTE | 2024-12-27 10:48 | DVHDS2 ---
Physician Discharge Progress N Final Diagnosis: testing for PIH intact amniotic membranes BV vaginal yeast infection Operations or Procedures: Operations or Procedures S: 29yo IUP@39.1wks presents to OB triage with possible leaking clear fluid since this morning. +FM, denies UCs/VB/VIEYRA/vision changes/RUQ pain. Pt has been getting testing for PIH. O: VSS, normotensive NST reactive Minimal leg swelling negative pitting per Dotty Gauthier RN Laboratory Tests Test 12/27/24 08:15 12/27/24 09:45 12/27/24 09:52 Range/Units Placental Kjlio-9-Pimvzxexzhbxz Negative Vaginal WBC (Wet Prep) Many Vaginal RBC (Wet Prep) None seen Vaginal Epithelial Cells (Wet Prep) Many Vaginal Bacteria (Wet Prep) Many Vaginal Trichomonas (Wet Prep) Not present Vaginal Yeast (Wet Prep) Few Vaginal Clue Cells (Wet Prep) Few Urine Color Light-yellow Yellow Urine Clarity Turbid H Clear Urine pH 6.0 5.0-9.0 Urine Specific [place] 1.017 1.001-1.035 Urine Protein 1+ H Negative Urine Ketones Negative Negative Urine Blood Negative Negative /uL Urine Nitrite Negative Negative Urine Bilirubin Negative Negative Urine Urobilinogen Normal Negative mg/dL Urine Leukocyte Esterase 3+ Negative /uL Urine RBC 3 0 - 4 /hpf Urine Microscopic WBC 38 H 0-5 /HPF Urine Squamous Epithelial Cells Few <5 /hpf Urine Bacteria Few H None Seen /hpf Urine Mucus Few None Seen Urine Creatinine 139.32 H 30.0-125.0 mg/dL Urine Protein/Creatinine Ratio 0.39 Urine Glucose Normal Normal mg/dL Urine Total Protein 54.0 H 1-14 mg/dL White Blood Count 8.3 4.4-10.8 10^3/uL Red Blood Count 3.99 L 4.0-5.20 10^6/uL Hemoglobin 10.8 L 12.2-16.2 g/dL Hematocrit 32.5 L 36.0-46.0 % Mean Corpuscular Volume 81.4 80.0-100.0 fL Mean Corpuscular Hemoglobin 27.0 L 28.0-32.0 pg Mean Corpuscular Hemoglobin Concent 33.2 32.0-36.0 g/dL Red Cell Distribution Width 13.4 11.8-14.3 % Platelet Count 164 140-450 10^3/uL Mean Platelet Volume 11.3 H 6.9-10.8 fL Neutrophils (%) (Auto) 64.4 37.0-80.0 % Lymphocytes (%) (Auto) 28.2 10.0-50.0 % Monocytes (%) (Auto) 6.7 0.0-12.0 % Eosinophils (%) (Auto) 0.2 0.0-7.0 % Basophils (%) (Auto) 0.5 0.0-2.0 % Neutrophils # (Auto) 5.3 1.6-8.6 10 ^3/uL Lymphocytes # (Auto) 2.3 0.4-5.4 10 ^3/uL Monocytes # (Auto) 0.6 0-1.3 10 ^3/uL Eosinophils # (Auto) 0 0-0.8 10 ^3/uL Basophils # (Auto) 0 0-0.2 10 ^3/uL Nucleated Red Blood Cells 0.1 % Prothrombin Time 9.8 9.3-11.8 sec Prothrombin Time INR 0.92 0.9-1.15 Activated Partial Thromboplast Time 25.7 24.5-34.5 SEC Sodium Level 139 136-145 mmol/L Potassium Level 3.8 3.5-5.1 mmol/L Chloride Level 107 98-107 mmol/L Carbon Dioxide Level 23 20-31 mmol/L Anion Gap Pending Blood Urea Nitrogen 11 9-23 mg/dL Creatinine 0.81 0.550-1.02 mg/dL Glomerular Filtration Rate Calc 102 >90 mL/min BUN/Creatinine Ratio 13.6 10.0-20.0 Serum Glucose 88 74-106 mg/dL Uric Acid 5.6 3.1-7.8 mg/dL Calcium Level 8.4 L 8.7-10.4 mg/dL Total Bilirubin 0.4 0.2-1.0 mg/dL Aspartate Amino Transferase (AST) 20 13-40 U/L Alanine Aminotransferase (ALT) 18 7-40 U/L Alkaline Phosphatase 170 H 46-116 U/L Total Protein 5.7 5.7-8.2 g/dL Albumin 3.4 3.2-4.8 g/dL A: 29yo IUP@39.1wks intact amniotic membranes BV vaginal yeast infection P: D/C home Rx sent to pharmacy [facility]/PreE/Labor precautions reviewed Dr. Alcantara consulted, agrees with POC. Other Interventions Other Interventions [address] [address] Ph: [phone] DIAGNOSTIC IMAGING Diagnostic Imaging Report : [id number] Signed PATIENT: CALLI HORNER ACCT: [id number] UNIT: [id number] : 1995 LOC: [facility] ROOM / BED: TRIAGE1 / A AGE / SEX: 29 / F ADM STATUS: ADM IN SERVICE 1 ORDERING PHYSICIAN: TA GARCIA CNM PROCEDURE(s): BPP - BIOPHYSICAL PROFILE REASON: PI ORDER NUMBER(s): [id number], ACCESSION NUMBER(s): [id number] BIOPHYSICAL PROFILE HISTORY: PIH TECHNIQUE: Multiple transabdominal real-time grayscale sonographic images through the gravid uterus of the fetus with duplex Doppler color flow and M-mode spectral analysis FINDINGS: BIOPHYSICAL PROFILE: breathing score: 2 movement score: 2 tone score: 2 Quantitative BOBO score: 2 (BOBO: 9.9 Cm.) Total score: 8 The cervix not well visualized Single live fetus in cephalic. presentation. heart rate 147 beats per minute. Grade 3 anterior placenta without previa or abruption IMPRESSION: Biophysical profile score: 8 ATED BY: REINIER NAIR MD DICTATED DATE/TIME: 12/27/24926 SIGNED BY: REINIER NAIR MD SIGNED DATE/TIME: 12/27/24926 CC: Condition on Discharge: Stable Disposition: Home Discharge Instructions: Diet: Regular Activity: No Restrictions, As Tolerated Medications: see med list Follow Up Care: Specialist: f/u on 12/29/24 with 24 hour urine collect per Dr. Alcantara Discharge Statement: "Patient was advised to return to the ER or call 911 if any headaches, dizziness, shortness of breath, chest pain, abdominal pain, bleeding, fevers, or worsening of medical condition. Patient was counseled about treatment plan, medications, possible side effects, patient�verbalized understanding. All questions were answered to the best of my ability. This discharge took greater then 30 minutes in planning, reviewing documenta tion, counseling the patient, and discussing with other team members." Visit Coding OBGYN Date of Service: December 27, 2024 Billing Provider: AT GARCIA CNM KILN TESTER Common Visit Codes: 21295-SIOVCSR OBS CARE (HIGH) KILN TESTER Procedure Codes: 75736-59- NON-STRESS TEST TA GARCIA CNM December 27, 2024 10:48
[2024-12-27] MEDS ORDERED: MET075VC VG (10:52)
[2024-12-27] MEDS ORDERED: FLUC150T38 PO (10:52)
[2024-12-27 11:01] LABS: Anion Gap 9 (5-15); Sodium 139 mmol/L (136-145)
== END 2024-12-27 11:06 | disposition home or self-care (01) ==
LOC: LDRP 07:57
PROVIDERS: ADMIT Obstetrics & Gynecology; ATTEND Obstetrics & Gynecology
DX: O13.3 Gestational [pregnancy-induced] hypertension without significant proteinuria, third trimester (principal); O98.513 Other viral diseases complicating pregnancy, third trimester; B37.31 Acute candidiasis of vulva and vagina; Z98.890 Other specified postprocedural states; Z79.899 Other long term (current) drug therapy; Z3A.39 39 weeks gestation of pregnancy; O98.813 Other maternal infectious and parasitic diseases complicating pregnancy, third trimester
CPT/HCPCS: 36415; 76818; 80053; 81001; 81002; 82570; 84112; 84156; 84550; 85025; 85610; 85730; 87210; 94760; G0378; 59025; 76819

== ENCOUNTER 2024-12-28 06:24 | Observation (INO) | payer BC ==
[~2024-12-28] VITALS: Ht 165.1 cm; Wt 77.1 kg
[~2024-12-28 06:24] MED LIST changes: -CEPH500T PO; +FLUC150T38 PO; +MET075VC VG
[2024-12-29 10:37] LABS: Urine Bacteria FEW /hpf (None Seen); Urine Blood Negative /uL (Negative); Urine Clarity Clear (Clear); Urine Color Light-Yellow (Yellow); Urine Protein, UAD Negative (Negative); Urine Specific Gravity 1.008 (1.001-1.035); Urine Squamous Epithelial Cell FEW /hpf (<5); Urine Urobilinogen Normal (Negative); Urine WBC 2 /HPF (0-5)
[2024-12-29 10:48] LABS: Protein, Urine 8.3 mg/dL (1-14)
[2024-12-29 10:51] LABS: Creatinine, Urine 63.4 mg/dL (30.0-125.0); Urine Protein/Creatinine Ratio 0.13
[2024-12-29 11:24] LABS: Protein, Urine 7.4 mg/dL (1-14)
--- NOTE | 2024-12-29 11:33 | DVH ---
CLINICAL HISTORY: -induced hypertension. COMPARISON: US BIOPHYSICAL PROFILE on DOS: 12/27/24, US BIOPHYSICAL PROFILE on DOS: 12/21/24, US BIOPHYS ICAL PROFILE on DOS: 12/14/24 TECHNIQUE: biophysical profile was performed. Transabdominal sonographic images of the fetus we re obtained. FINDINGS: The fetus is in cephalic position. heart rate measures 151 BPM. Amniotic fluid index measures 10.4 cm. The placenta is anterior in position with no evidence of previa or abruption. Grade 3 placenta. BPP profile is an overall score of 8/8, with 2/2 points for breathing, with at least one episode of breathing over a 30 second duration during a 30 minute observation, 2/2 points for m ovements, with 3 or more discrete body or limb movements, 2/2 points for tone, with one or more episodes of extremity extension with return to flexion, or opening and closing of hand, and 2/ 2 points for amniotic fluid, with at least 1 pocket of amniotic fluid that measures 2 cm in 2 perpend icular planes. IMPRESSION: BPP score of 8/8.
--- NOTE | 2024-12-29 11:49 | DVHDS2 ---
Physician Discharge Progress N Final Diagnosis: pih ruled out 39wks Operations or Procedures: Operations or Procedures nst reactive reviewed Condition on Discharge: Good Disposition: Home Discharge Instructions: Diet: Regular Activity: No Restrictions, As Tolerated Medications: na Follow Up Care: Specialist: fu on thursday Discharge Statement: "Patient was advised to return to the ER or call 911 if any headaches, dizziness, shortness of breath, chest pain, abdominal pain, bleeding, fevers, or worsening of medical condition. Patient was counseled about treatment plan, medications, possible side effects, patientverbalized understanding. All questions were answered to the best of my ability. This discharge took greater then 30 minutes in planning, reviewing documentation, counseling the patient, and discussing with other team members." Visit Coding OBGYN Date of Service: December 29, 2024 Billing Provider: DVIYA BOWEN DO DIRECTOR OF MANUFACTURING Common Visit Codes: 71117-LHCVAIT OBS CARE (HIGH) DIRECTOR OF MANUFACTURING Procedure Codes: 57583-74- NON-STRESS TEST DIVYA BOWEN DO December 29, 2024 11:49
[2024-12-29 12:12] LABS: 24 Hr. Total Protein, Urine 151.7 mg/24 Hr (<149.1)
== END 2024-12-29 11:45 | disposition home or self-care (01) ==
LOC: LDRP 12-29 09:56
PROVIDERS: ADMIT Obstetrics & Gynecology; ATTEND Obstetrics & Gynecology
DX: Z36.89 Encounter for other specified antenatal screening (principal); Z3A.39 39 weeks gestation of pregnancy; Z79.899 Other long term (current) drug therapy; Z98.890 Other specified postprocedural states
CPT/HCPCS: 76818; 81001; 82570; 84156; 94760; G0378; 59025; 76819

== ENCOUNTER 2024-12-30 17:58 | Inpatient (IN) | payer BC ==
[~2024-12-30] VITALS: Ht 33 cm; Wt 0.5 kg
[2024-12-30] MEDS ORDERED: PENICILLIN G POT 5MIL/D5 50ML 50 ML IV ONE (18:45)
[2024-12-30] MEDS ORDERED: ONDANSETRON HCL 4 MG/2 ML VIAL IV PRN (18:45)
[2024-12-30] MEDS ORDERED: LACTATED RINGER'S 1,000 ML IV SCH (18:45)
[2024-12-30] MEDS ORDERED: NALBUPHINE HCL 10 MG/1ml INJECTION IV PRN (18:45)
[2024-12-30] MEDS ORDERED: LACT. RINGERS/OXYTOCIN 20UNITS 1,000 ML IV ONE (18:54)
[2024-12-30] MEDS ORDERED: METHYLERGONOVINE MALEATE 0.2 MG/ML AMP IM ONE (18:54)
--- NOTE | 2024-12-30 18:55 | DVHHP ---
ADMIT DATE: 12/30/2024 CHIEF COMPLAINT: Labor. HISTORY OF PRESENT ILLNESS: The patient is a 29-year-old 1, para 0, with EDC 01/02, estimated gestational age of 39 weeks, admitted for active labor. The patient was noted to be 7 cm, -1, 90%. No rupture of membranes or vaginal bleeding. PAST MEDICAL HISTORY: None. PAST SURGICAL HISTORY: None. SOCIAL HISTORY: None. FAMILY HISTORY: None. 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 ALLERGIES: No known drug allergies. REVIEW OF SYSTEMS: Consistent with HPI. PHYSICAL EXAMINATION: VITAL SIGNS: Stable, afebrile. HEENT: Within normal limits. CARDIOVASCULAR: Regular rate and rhythm. LUNGS: Clear to auscultation. BREASTS: Symmetrical, no masses. ABDOMEN: Gravid. Positive heart. PELVIC: 7 cm, -1, 90%. EXTREMITIES: No clubbing, cyanosis, or edema. IMPRESSION: Intrauterine at 39+ weeks, in labor. PLAN: Expectant vaginal delivery. Informed consent obtained. DO ALFRED Dowd TID: [id number] RECEIPT: [id number]
[2024-12-30] MEDS: WITCH HAZEL-GLYCERIN PAD TOP PRN (19:07)
[2024-12-30] MEDS: PHISODERM TOP SOLN 240ML BTL TOP PRN (19:07)
[2024-12-30] MEDS: DERMOPLAST 60ML BOTTLE TOP PRN (19:08)
--- NOTE | 2024-12-30 19:47 | LDN2 ---
Labor and Delivery Note Date 12/30/24 Age 29 1 Para 1 EDC 5-19 EGA 39WKS Diagnosis LABOR Vaginal Delivery: VTX Vacuum Assisted: No Placenta: Spontaneous Sex: Male Apgars 8-9 Nuchal Cord Transected: No Amniotic Fluid: Clear Anesthesia XYLOCAINE Episiotomy: Yes Extension: Yes (MIDLINE EPIS WITH 2ND DEG PERINEAL LAC) Repaired with 2-0 CHROMIC EBL 300ML Complications NONE Conditions STABLE Comments/Significant Med Bea SPEC EXAM NO CXAL LAC Visit Coding OBGYN Date of Service: December 30, 2024 Billing Provider: DIVYA BOWEN DO ERADICATOR Common Visit Codes: 57359-IPVBSKX OBS CARE (HIGH) ERADICATOR Procedure Codes: 55468-GLN DELIVERY ONLY DIVYA BOWEN DO December 30, 2024 19:47
[2024-12-30 19:49] LABS: Urine Bacteria None Seen /hpf (None Seen)
[2024-12-30 20:14] LABS: Urine Blood Negative /uL (Negative); Urine Clarity Clear (Clear); Urine Color Yellow (Yellow); Urine Mucus FEW (None Seen); Urine Protein, UAD 1+ (Negative); Urine Specific Gravity 1.022 (1.001-1.035); Urine Squamous Epithelial Cell FEW /hpf (<5); Urine Urobilinogen Normal (Negative); Urine WBC 1 /HPF (0-5); Urine pH 5.5 (5.0-9.0)
[2024-12-30 20:21] LABS: Protein, Urine 50.6 mg/dL (1-14)
[2024-12-30 20:32] LABS: Urine Protein/Creatinine Ratio 0.2
[2024-12-30 20:39] LABS: Amphetamine Screen, Urine Neg (NEGATIVE); Barbiturate Scree,Urine Neg (NEGATIVE); Benzodiazephine Screen, Urine Neg (NEGATIVE); Cannabinoid Screen, Urine Neg (NEGATIVE); Cocaine Screen, Urine Neg (NEGATIVE); Creatinine, Urine 248.11 mg/dL (30.0-125.0); Opiate Scree,Urine Neg (NEGATIVE); Phencyclidine Screen, Urine Neg (NEGATIVE)
[2024-12-30 21:10] LABS: Basophils # (auto) 0 10 ^3/uL (0-0.2); Basophils % (auto) 0.3 % (0.0-2.0); Eosinophils # (auto) 0 10 ^3/uL (0-0.8); Hemoglobin 10.9 g/dL (12.2-16.2); Lymphocytes # (auto) 1.2 10 ^3/uL (0.4-5.4); Lymphocytes % (auto) 7.9 % (10.0-50.0); Mean Corpuscular Hemoglobin 26.7 pg (28.0-32.0); Mean Corpuscular Hgb Conc. 32.9 g/dL (32.0-36.0); Mean Corpuscular Volume 81.1 fL (80.0-100.0); Monocytes # (auto) 0.8 10 ^3/uL (0-1.3); Monocytes % (auto) 4.9 % (0.0-12.0); Neutrophils # (auto) 13.7 10 ^3/uL (1.6-8.6); Neutrophils % (auto) 86.9 % (37.0-80.0); Platelet Count (auto) 173 10^3/uL (140-450); Red Blood Cells 4.06 10^6/uL (4.0-5.20); Red Cell Distribution Width 13.7 % (11.8-14.3); White Blood Cell 15.7 10^3/uL (4.4-10.8)
[2024-12-30 21:25] LABS: INR 0.91 (0.9-1.15); Partial Thromboplastin Time 24.8 SEC (24.5-34.5); Prothrombin Time 9.7 sec (9.3-11.8)
[2024-12-30 21:29] LABS: Alanine Aminotransferase 23 U/L (7-40); Albumin 3.5 g/dL (3.2-4.8); Anion Gap 8 (5-15); Aspartate Aminotransferase 29 U/L (13-40); BUN/Creatinine Ratio 9.5 (10.0-20.0); Calcium 9.3 mg/dL (8.7-10.4); Carbon Dioxide 23 mmol/L (20-31); Chloride 107 mmol/L (98-107); Glucose 94 mg/dL (74-106); Potassium 3.8 mmol/L (3.5-5.1); Sodium 138 mmol/L (136-145)
[2024-12-30 21:30] LABS: Bilirubin, Total 0.4 mg/dL (0.2-1.0)
[2024-12-30 21:33] LABS: Alkaline Phosphatase 185 U/L (46-116); Blood Urea Nitrogen 7 mg/dL (9-23)
[2024-12-30] MEDS: LACT. RINGERS/OXYTOCIN 20UNITS 500 ML IV ONE ×2 (21:45→21:46)
[2024-12-30] MEDS: LIDOCAINE 2%HCL (LOCAL ANESTH.) INJ 20ML MDV IJ PRN (21:47)
[2024-12-30 22:00] LABS: Uric Acid 4.6 mg/dL (3.1-7.8)
[2024-12-30] MEDS ORDERED: ONDANSETRON ODT 4 MG TAB PO PRN (22:00)
[2024-12-30] MEDS ORDERED: IBUPROFEN 600 MG TAB PO PRN (22:00)
[2024-12-30] MEDS ORDERED: ACETAMINOPHEN 325 MG TAB PO PRN (22:00)
[2024-12-30] MEDS ORDERED: PENICILLIN G POTASSIUM 2,500,000 UNITS in D5W 5% 50 ML IV SCH (22:45)
[2024-12-30 23:00] VITALS: BP 117/79; PULSE 84; RESP 15; TEMP 98.2; O2SAT 97
--- NOTE | 2024-12-31 02:33 | DVHPN2 ---
Chief Complaints Patient reports: No new complaints Nursing reports: No new complaints Objective Vitals Vital Signs Date Time Temp Pulse Resp B/P (MAP) Pulse Ox O2 Delivery O2 Flow Rate FiO2 12/30/24 21:30 Room Air Medications Current Medications Medications (Trade) Dose Ordered Sig/Rut Route PRN Reason Start Time Stop Time Status Last Admin Acetaminophen (Tylenol Tablet) 650 mg Q4HP PRN PO MILD PAIN (1-3 PAIN SCALE) 12/30/24 22:00 Benzocaine (Dermoplast) 1 applic PRN PRN TOP PERINEAL AREA DISCOMFORT 12/30/24 18:45 12/30/24 19:08 Docusate Sodium (Colace Capsule) 200 mg HS PO 12/31/24 22:00 Ibuprofen (Motrin Tablet) 600 mg Q6HP PRN PO MODERATE PAIN (4-6 PAIN SCALE) 12/30/24 22:00 Lactated Ringer's 1,000 ml @ 125 mls/hr Q8H IV 12/30/24 18:45 Lidocaine HCl (Xylocaine) 20 ml ONCE PRN IJ PERINEAL AREA DISCOMFORT 12/30/24 18:45 12/30/24 21:47 Nalbuphine HCl (Nubain) 10 mg Q4HP PRN IV MODERATE PAIN (4-6 PAIN SCALE) 12/30/24 18:45 Cancel Ondansetron HCl (Zofran Po) 4 mg Q4HPRN PRN PO NAUSEA / VOMITING 12/30/24 22:00 Ondansetron HCl (Zofran) 4 mg Q6HPRN PRN IV NAUSEA / VOMITING 12/30/24 18:45 Penicillin G Potassium 5805901 units/Dextrose 50 ml @ 100 mls/hr Q4H IV 12/30/24 22:45 Cancel Sodium Lauryl Sulfate (Phisoderm) 240 ml PRN PRN TOP PERINEAL AREA DISCOMFORT 12/30/24 18:45 12/30/24 19:07 Witch Christiana (Tucks) 1 pad PRN PRN TOP PERINEAL AREA DISCOMFORT 12/30/24 18:45 12/30/24 19:07 General: Normal Lungs: Normal Cardiovascular: Normal Abdominal: Soft Extremities: Normal Studies Laboratory Tests 12/30/24 20:55 Test 12/30/24 20:55 Range/Units Serum Glucose 94 74-106 mg/dL Ass/Plan Assessment S/P Plan SUPPORTIVE CARE Visit Coding OBGYN Date of Service: December 31, 2024 Billing Provider: DIVYA BOWEN DO DOCTOR OF DENTAL MEDICINE Common Visit Codes: 65285-GKP/OBS SAME DATE (HIGH) DIVYA BOWEN DO December 31, 2024 02:33
[2024-12-31 03:00] VITALS: BP 135/77; PULSE 78; RESP 16; TEMP 98.8; O2SAT 98
[2024-12-31 07:00] VITALS: BP 117/73; PULSE 68; RESP 18; TEMP 99.6; O2SAT 98
[2024-12-31 11:00] VITALS: BP 138/88; PULSE 62; RESP 16; TEMP 98.2; O2SAT 98
[2024-12-31 15:00] VITALS: BP 138/88; PULSE 62; RESP 16; TEMP 98.2; O2SAT 98
--- NOTE | 2024-12-31 20:15 | DVHDS2 ---
Physician Discharge Progress N Final Diagnosis: Term , delivered Secondary Diagnosis: None Operations or Procedures: Operations or Procedures Spontaneous vaginal delivery Commentary: Commentary Normal labor and delivery, uncomplicated. Normal pp course. Condition on Discharge: Stable Disposition: Home Discharge Instructions: Diet: Regular Activity: No Restrictions, As Tolerated Activity comment: Pelvic rest x 6 wk Follow Up/Referral: 2 wk for 1st visit Medications: N/A Follow Up Care: Discharge Statement: "Patient was advised to return to the ER or call 911 if any headaches, dizziness, shortness of breath, chest pain, abdominal pain, bleeding, fevers, or worsening of medical condition. Patient was counseled about treatment plan, medications, possible side effects, patientverbalized understanding. All questions were answered to the best of my ability. This discharge took greater then 30 minutes in planning, reviewing documentation, counseling the patient, and discussing with other team members." Visit Coding OBGYN Date of Service: December 31, 2024 Billing Provider: GAVINO STOREY DO FIBERLINE SUPERVISOR Common Visit Codes: 73708-VFA/OBS DISCH DAY <30MIN GAVINO STOREY DO December 31, 2024 20:15
[2024-12-31] MEDS ORDERED: DOCUSATE SOD 100 MG CAP PO SCH (22:00)
== END 2024-12-31 20:45 | disposition home or self-care (01) | DRG 807 ==
LOC: LDRP 17:58 → OBSVTOIN 18:29 → LDRP 18:31
PROVIDERS: ADMIT Obstetrics & Gynecology; ATTEND Obstetrics & Gynecology
PROC: 10E0XZZ Delivery of Products of Conception, External Approach (ICD-10-PCS; principal; 2024-12-30)
PROC: 0KQM0ZZ Repair Perineum Muscle, Open Approach (ICD-10-PCS; 2024-12-30)
PROC: 0W8NXZZ Division of Female Perineum, External Approach (ICD-10-PCS; 2024-12-30)
DX: O70.1 Second degree perineal laceration during delivery (principal); Z37.0 Single live birth; Z3A.39 39 weeks gestation of pregnancy
CPT/HCPCS: 36415; 59025; 59409; 80053; 80307; 81001; 81002; 82570; 84156; 84550; 85025; 85610; 85730; 86780; 86803; 86850; 86900; 86901; 94760; 94762; 96360; 96361; 96365; 96366; G0378; J2590; J7060